=== PATIENT | female | born 1945 | race Caucasian/White ===

== ENCOUNTER 2022-11-12 21:33 | Inpatient (IN) | payer MEDICARE, OTHER ==
[~2022-11-12] VITALS: Ht 170.2 cm; Wt 90.7 kg
[2022-11-12] MEDS: MAGNESIUM SULFATE/D5W 100 ML IV SCH (00:22)
[2022-11-12] MEDS: IV NORMAL SALINE 250 ML BAG IV ONE (00:58)
[2022-11-12] MEDS ORDERED: VANCOMYCIN IV 1,000 MG in IV DEXTROSE 5% 250 ML IV ONE (21:45)
[2022-11-12] MEDS ORDERED: ACETAMINOPHEN 650 MG SUPP.RECT RC ONE ×2 (21:45→23:17)
[2022-11-12] MEDS ORDERED: CEFEPIME HCL 1 G in IV DEXTROSE 5% 50 ML IV ONE (21:45)
[2022-11-12 22:03] LABS: HEMATOCRIT 36.5 % (31.2-41.9); MEAN CORPUSCULAR HEMOGLOBIN 29.5 uug (24.7-32.8); MEAN CORPUSCULAR VOLUME 89.1 fL (75.5-95.3); PLATELET COUNT (AUTO) 185 K/uL (179-408)
[2022-11-12 22:24] LABS: CREATININE 0.9 mg/dL (0.6-1.3)
[2022-11-12 22:26] LABS: BILIRUBIN,TOTAL 0.4 mg/dL (0.2-1.0); MAGNESIUM 1.6 mg/dL (1.8-2.4); PHOSPHOROUS 4.1 mg/dL (2.5-4.9); TOTAL PROTEIN, SERUM 7.8 g/dL (6.4-8.2)
[2022-11-12] MEDS ORDERED: CEFEPIME HCL 1 G VIAL ONE (23:16)
[2022-11-12] MEDS ORDERED: VANCOMYCIN IV 200 ML ONE (23:52)
[2022-11-12] MEDS ORDERED: ASPI81TA31 PO (23:54)
[2022-11-12] MEDS ORDERED: ALBU2.5V38 NEB (23:54)
[2022-11-12] MEDS ORDERED: DOCU-141 PO (23:54)
[2022-11-12] MEDS ORDERED: GLUC1KIT IM (23:54)
[2022-11-12] MEDS ORDERED: DIPH25CA83 PO (23:54)
[2022-11-12] MEDS ORDERED: HYDR-3972 PO (23:54)
[2022-11-12] MEDS ORDERED: ASCO500T10 PO (23:54)
[2022-11-13] MEDS ORDERED: LEVO88TA5 PO (00:02)
[2022-11-13] MEDS ORDERED: INSU100V7 SQ (00:02)
[2022-11-13] MEDS ORDERED: LINA5TAB PO (00:02)
[2022-11-13] MEDS ORDERED: METO25TA6 PO (00:02)
[2022-11-13] MEDS ORDERED: MELA5TAB PO (00:02)
[2022-11-13] MEDS ORDERED: ENOX40DI SQ (00:02)
[2022-11-13] MEDS ORDERED: ONDA4TAB11 PO (00:02)
[2022-11-13] MEDS ORDERED: MULT-594 PO (00:02)
[2022-11-13] MEDS ORDERED: SIME80TA15 PO (00:02)
[2022-11-13] MEDS ORDERED: METF-440 PO (00:02)
[2022-11-13 00:08] LABS: ABG BASE EXCESS -5.6 mmol/L; ABG HCO3 20.4 mmol/L; ABG PCO2 41.7 mmHg (35.0-45.0); ABG PH 7.308 (7.350-7.450); ABG PO2 35.1 mmHg (75.0-100.0); ABG SITE RIGHT RADIAL; ABG TOTAL HEMOGLOBIN 13.6 G/dL (12.0-16.0); COHb 0.6 % (0.5-1.5); MetHb 0.3 % (0.0-1.5); O2Hb 60.3 % (94.0-97.0)
[2022-11-13] MEDS ORDERED: MAGNESIUM SULFATE/D5W 100 ML ONE (00:17)
[2022-11-13] MEDS: MAGNESIUM SULFATE/D5W 100 ML IV SCH (00:18)
[2022-11-13] MEDS ORDERED: SWABABLE VALVE TRANSFER SET EA MC ONE (00:25)
[2022-11-13] MEDS ORDERED: IOHEXOL 350 100 ML INFUS..BTL ONE (00:25)
[2022-11-13] MEDS ORDERED: IV NORMAL SALINE 250 ML IV ONE (00:25)
[2022-11-13 00:30] LABS: *BILIRUBIN,URIN NEGATIVE (NEGATIVE); *BLOOD, URINE 2+ (NEGATIVE); *COLOR,URINE YELLOW (YELLOW); *KETONES,URINE TRACE (NEGATIVE); *UROBILINOGEN,URINE 0.2 E.U./dl (NORMAL); LEUKOCYTE ESTERASE ,URINE 3+ (NEGATIVE); NITRITE, URINE NEGATIVE (NEGATIVE); PH,URINE 5.5 (5.0-8.0)
[2022-11-13 00:36] LABS: UGLUCOSE 2+ (NEGATIVE)
[2022-11-13] MEDS ORDERED: INSULIN REGULAR, HUMAN 300 UNIT/3 ML VIAL IV ONE (00:45)
[2022-11-13] MEDS ORDERED: IV NORMAL SALINE 500 ML BAG IV ONE (00:45)
[2022-11-13] MEDS: IV NORMAL SALINE 250 ML BAG IV ONE (00:58)
[2022-11-13 02:10] LABS: *CLARITY,URINE CLOUDY (CLEAR); RBC,URINE TNTC /HPF (0-3)
[2022-11-13 02:11] LABS: WBC,URINE TNTC /HPF (0-3)
[2022-11-13 02:15] LABS: BACTERIA,URINE MODERATE /HPF (NONE SEEN); SQUAMOUS EPITHELIAL CELL,UR NONE SEEN /HPF (NONE SEEN); YEAST,URINE MANY /HPF (NONE SEEN)
[2022-11-13] MEDS ORDERED: ONDANSETRON 4 MG/2 ML VIAL IV PRN (05:00)
[2022-11-13] MEDS ORDERED: DEXTROSE 50% 50 ML DISP.SYRIN IV PRN (05:00)
[2022-11-13] MEDS ORDERED: REMEDY ESSENTIAL ZINC PASTE 113 GM TP PRN (05:00)
[2022-11-13] MEDS ORDERED: ACETAMINOPHEN 325 MG TABLET PO PRN (05:00)
[2022-11-13] MEDS ORDERED: INSULIN REGULAR, HUMAN 300 UNITS/3 ML VIAL SQ PRN (05:00)
[2022-11-13] MEDS ORDERED: MAGNESIUM HYDROXIDE 30 ML LIQUID UDC PO PRN (05:00)
[2022-11-13] MEDS ORDERED: ONDANSETRON 4 MG/2 ML VIAL ONE (07:10)
[2022-11-13] MEDS ORDERED: CEFEPIME HCL 1 G VIAL ONE ×3 (07:42→22:17)
[2022-11-13] MEDS: CEFEPIME HCL 1 G in IV DEXTROSE 5% 50 ML IV SCH ×3 (07:49→22:53)
[2022-11-13] MEDS: BLOOD SUGAR DIAGNOSTIC 1 EACH STRIP VI SCH ×4 (07:53→21:00)
[2022-11-13] MEDS ORDERED: INSULIN REGULAR, HUMAN 300 UNIT/3 ML VIAL ONE (08:05)
[2022-11-13] MEDS: INSULIN REGULAR, HUMAN 300 UNIT/3 ML VIAL SQ PRN ×3 (08:18→16:56)
[2022-11-13 08:23] LABS: ABG BASE EXCESS -5.3 mmol/L; ABG HCO3 18.8 mmol/L; ABG PCO2 32.3 mmHg (35.0-45.0); ABG PH 7.382 (7.350-7.450); ABG PO2 386.6 mmHg (75.0-100.0); ABG SITE RIGHT RADIAL; ABG TOTAL HEMOGLOBIN 13.1 G/dL (12.0-16.0); COHb 0.5 % (0.5-1.5); MetHb 0.4 % (0.0-1.5); O2Hb 98.8 % (94.0-97.0); VENT MODE BIPAP
[2022-11-13 10:46] LABS: MEAN CORPUSCULAR HEMOGLOBIN 29.1 uug (24.7-32.8); MEAN CORPUSCULAR VOLUME 89.1 fL (75.5-95.3); PLATELET COUNT (AUTO) 166 K/uL (179-408)
[2022-11-13 11:04] LABS: BILIRUBIN,TOTAL 0.3 mg/dL (0.2-1.0); CREATININE 1.2 mg/dL (0.6-1.3); PHOSPHOROUS 4.2 mg/dL (2.5-4.9); POTASSIUM 4.5 mmol/L (3.5-5.1); TOTAL PROTEIN, SERUM 7.3 g/dL (6.4-8.2)
[2022-11-13] MEDS ORDERED: VANCOMYCIN IV 200 ML ONE (11:06)
[2022-11-13] MEDS: VANCOMYCIN IV 1,000 MG in IV DEXTROSE 5% 250 ML IV SCH ×2 (11:18→22:52)
[2022-11-13] MEDS: LINAGLIPTIN 5 MG TABLET PO SCH (12:25)
[2022-11-13 12:38] LABS: THYROID STIMULATING HORMONE 3.713 mIU/mL (0.358-3.740)
[2022-11-13 15:48] VITALS: BP 146/59
[2022-11-13] MEDS: DOCUSATE SODIUM 100 MG CAPSULE PO SCH (16:56)
[2022-11-13] MEDS: IV NS 1000 ML 1,000 ML IV PRN (18:47)
[2022-11-13 20:00] VITALS: BP 147/60
[2022-11-13] MEDS: MELATONIN 3 MG TABLET PO SCH (22:51)
[2022-11-13] MEDS: INSULIN GLARGINE,HUM 300 UNITS/3 ML CARTRIDGE SQ SCH (22:51)
[2022-11-13] MEDS: GUAIFENESIN/DEXTROMETHORPHAN 5 ML UDC PO PRN (23:54)
[2022-11-14] VITALS: BP 111/57
[2022-11-14] MEDS ORDERED: DEXTROSE 50% 50 ML DISP.SYRIN IV PRN (00:45)
[2022-11-14] MEDS ORDERED: INSULIN REGULAR, HUMAN 300 UNIT/3 ML VIAL SQ PRN (00:45)
[2022-11-14] MEDS ORDERED: CEFEPIME HCL 1 G VIAL ONE (01:24)
[2022-11-14 04:00] VITALS: BP 129/53
[2022-11-14] MEDS: CEFEPIME HCL 1 G in IV DEXTROSE 5% 50 ML IV SCH (06:05)
[2022-11-14] MEDS: LEVOTHYROXINE SODIUM 88 MCG TABLET PO SCH (06:05)
[2022-11-14] MEDS: GUAIFENESIN/DEXTROMETHORPHAN 5 ML UDC PO PRN ×2 (06:05→15:47)
[2022-11-14] MEDS: BLOOD SUGAR DIAGNOSTIC 1 EACH STRIP VI SCH ×4 (06:40→20:17)
[2022-11-14 07:12] LABS: HEMATOCRIT 30.3 % (31.2-41.9); MEAN CORPUSCULAR VOLUME 89.6 fL (75.5-95.3); PLATELET COUNT (AUTO) 159 K/uL (179-408)
[2022-11-14 07:28] LABS: BILIRUBIN,TOTAL 0.4 mg/dL (0.2-1.0); CREATININE 0.8 mg/dL (0.6-1.3); MAGNESIUM 2.1 mg/dL (1.8-2.4); PHOSPHOROUS 3.2 mg/dL (2.5-4.9); POTASSIUM 3.7 mmol/L (3.5-5.1); TOTAL PROTEIN, SERUM 6.6 g/dL (6.4-8.2)
[2022-11-14] MEDS ORDERED: BLOOD SUGAR DIAGNOSTIC 1 EACH STRIP VI SCH (07:30)
[2022-11-14] MEDS: INSULIN REGULAR, HUMAN 300 UNIT/3 ML VIAL SQ PRN ×3 (07:42→16:30)
[2022-11-14] MEDS: MULTIVITAMINS,THERAPEUTIC TABLET PO SCH (08:26)
[2022-11-14] MEDS: DOCUSATE SODIUM 100 MG CAPSULE PO SCH ×2 (08:26→16:44)
[2022-11-14] MEDS: ASPIRIN EC 81 MG TABLET.DR PO SCH (08:26)
[2022-11-14] MEDS: LINAGLIPTIN 5 MG TABLET PO SCH (08:26)
[2022-11-14] MEDS: VANCOMYCIN IV 1,000 MG in IV DEXTROSE 5% 250 ML IV SCH ×2 (10:45→23:08)
[2022-11-14 11:26] VITALS: BP 129/51
[2022-11-14] MEDS: CEFEPIME HCL 2 G in IV DEXTROSE 5% 100 ML IV SCH ×2 (13:39→21:07)
[2022-11-14] MEDS ORDERED: CEFEPIME HCL 2 G in IV DEXTROSE 5% 50 ML IV SCH (14:00)
[2022-11-14 15:53] VITALS: BP 125/48
[2022-11-14 20:00] VITALS: BP 134/35
[2022-11-14] MEDS: INSULIN GLARGINE,HUM 300 UNITS/3 ML CARTRIDGE SQ SCH (20:19)
[2022-11-14] MEDS: MELATONIN 3 MG TABLET PO SCH (20:20)
[2022-11-14] MEDS: MUPIROCIN 2% OINT 22 GM TUBE NS SCH (20:20)
[2022-11-15] VITALS: BP 156/44
[2022-11-15] MEDS: ALBUTEROL SULFATE 2.5 MG/3 ML NEBU NEB PRN (01:52)
[2022-11-15] MEDS: GUAIFENESIN/DEXTROMETHORPHAN 5 ML UDC PO PRN (03:10)
[2022-11-15 04:00] VITALS: BP 140/65
[2022-11-15] MEDS: CEFEPIME HCL 2 G in IV DEXTROSE 5% 100 ML IV SCH ×3 (05:08→22:37)
[2022-11-15] MEDS: LEVOTHYROXINE SODIUM 88 MCG TABLET PO SCH (06:05)
[2022-11-15] MEDS: BLOOD SUGAR DIAGNOSTIC 1 EACH STRIP VI SCH ×4 (06:34→21:45)
[2022-11-15 07:25] LABS: CREATININE 0.8 mg/dL (0.6-1.3); POTASSIUM 3.9 mmol/L (3.5-5.1)
[2022-11-15] MEDS: MULTIVITAMINS,THERAPEUTIC TABLET PO SCH (08:45)
[2022-11-15] MEDS: LINAGLIPTIN 5 MG TABLET PO SCH (08:45)
[2022-11-15] MEDS: DOCUSATE SODIUM 100 MG CAPSULE PO SCH ×2 (08:45→16:55)
[2022-11-15] MEDS: ASPIRIN EC 81 MG TABLET.DR PO SCH (08:46)
[2022-11-15] MEDS: MUPIROCIN 2% OINT 22 GM TUBE NS SCH ×2 (08:46→21:35)
[2022-11-15] MEDS: VANCOMYCIN IV 1,000 MG in IV DEXTROSE 5% 250 ML IV SCH ×2 (10:08→23:30)
[2022-11-15] MEDS: IV NS 1000 ML 1,000 ML IV PRN (10:19)
[2022-11-15] MEDS: NUTRISOURCE FIBER 4 GM PACKET PO SCH (10:46)
[2022-11-15] MEDS: INSULIN REGULAR, HUMAN 300 UNIT/3 ML VIAL SQ PRN ×2 (11:41→16:41)
[2022-11-15] MEDS ORDERED: FUROSEMIDE 20 MG/2 ML VIAL IV ONE (17:15)
[2022-11-15 20:31] VITALS: BP 132/51
[2022-11-15] MEDS: MELATONIN 3 MG TABLET PO SCH (21:35)
[2022-11-15] MEDS: INSULIN GLARGINE,HUM 300 UNITS/3 ML CARTRIDGE SQ SCH (21:47)
[2022-11-16 00:09] VITALS: BP 141/55
[2022-11-16 04:05] VITALS: BP 133/52
[2022-11-16] MEDS: ALBUTEROL SULFATE 2.5 MG/3 ML NEBU NEB PRN ×3 (04:40→20:44)
[2022-11-16] MEDS: CEFEPIME HCL 2 G in IV DEXTROSE 5% 100 ML IV SCH ×3 (06:03→21:43)
[2022-11-16] MEDS: LEVOTHYROXINE SODIUM 88 MCG TABLET PO SCH (06:04)
[2022-11-16 06:36] LABS: CREATININE 0.8 mg/dL (0.6-1.3); POTASSIUM 3.4 mmol/L (3.5-5.1)
[2022-11-16] MEDS: BLOOD SUGAR DIAGNOSTIC 1 EACH STRIP VI SCH ×4 (06:40→21:43)
[2022-11-16] MEDS: ASPIRIN EC 81 MG TABLET.DR PO SCH (08:36)
[2022-11-16] MEDS: DOCUSATE SODIUM 100 MG CAPSULE PO SCH ×2 (08:36→18:01)
[2022-11-16] MEDS: LINAGLIPTIN 5 MG TABLET PO SCH (08:36)
[2022-11-16] MEDS: MULTIVITAMINS,THERAPEUTIC TABLET PO SCH (08:37)
[2022-11-16] MEDS: NUTRISOURCE FIBER 4 GM PACKET PO SCH (08:37)
[2022-11-16] MEDS: MUPIROCIN 2% OINT 22 GM TUBE NS SCH ×2 (08:38→21:43)
[2022-11-16] MEDS: INSULIN REGULAR, HUMAN 300 UNIT/3 ML VIAL SQ PRN ×3 (08:39→18:07)
[2022-11-16] MEDS ORDERED: POTASSIUM CHLORIDE 20 MEQ TAB.PRT.SR PO ONE (10:15)
[2022-11-16 11:29] VITALS: BP 127/43
[2022-11-16] MEDS: VANCOMYCIN IV 1,000 MG in IV DEXTROSE 5% 250 ML IV SCH ×2 (12:19→22:20)
[2022-11-16] MEDS: GUAIFENESIN/DEXTROMETHORPHAN 5 ML UDC PO PRN (14:15)
[2022-11-16 15:30] VITALS: BP 137/58
[2022-11-16 20:00] VITALS: BP 153/61
[2022-11-16] MEDS: INSULIN GLARGINE,HUM 300 UNITS/3 ML CARTRIDGE SQ SCH (20:26)
[2022-11-16] MEDS ORDERED: FLUCONAZOLE 200 MG/100 ML PIGGYBACK ONE (21:37)
[2022-11-16] MEDS: MELATONIN 3 MG TABLET PO SCH (21:43)
[2022-11-16] MEDS ORDERED: FLUCONAZOLE 200 MG/NS 100ML IV 100 MG in PREMIXED 1 EACH IV SCH (22:00)
[2022-11-17] MEDS: GUAIFENESIN/DEXTROMETHORPHAN 5 ML UDC PO PRN ×2 (01:23→13:46)
[2022-11-17] MEDS: CEFEPIME HCL 2 G in IV DEXTROSE 5% 100 ML IV SCH ×2 (06:34→13:40)
[2022-11-17] MEDS: LEVOTHYROXINE SODIUM 88 MCG TABLET PO SCH (06:34)
[2022-11-17] MEDS: BLOOD SUGAR DIAGNOSTIC 1 EACH STRIP VI SCH ×3 (06:35→16:54)
[2022-11-17] MEDS: DOCUSATE SODIUM 100 MG CAPSULE PO SCH (09:20)
[2022-11-17] MEDS: MULTIVITAMINS,THERAPEUTIC TABLET PO SCH (09:20)
[2022-11-17] MEDS: ASPIRIN EC 81 MG TABLET.DR PO SCH (09:20)
[2022-11-17] MEDS: LINAGLIPTIN 5 MG TABLET PO SCH (09:20)
[2022-11-17] MEDS: NUTRISOURCE FIBER 4 GM PACKET PO SCH (09:22)
[2022-11-17] MEDS: MUPIROCIN 2% OINT 22 GM TUBE NS SCH (09:23)
[2022-11-17 10:48] LABS: CREATININE 0.8 mg/dL (0.6-1.3); POTASSIUM 4.2 mmol/L (3.5-5.1); VANCOMYCIN,TROUGH 25.1 ug/mL (12.0-20.0)
[2022-11-17 11:20] VITALS: BP 136/47
[2022-11-17] MEDS: INSULIN REGULAR, HUMAN 300 UNIT/3 ML VIAL SQ PRN (11:49)
[2022-11-17] MEDS ORDERED: DEXT50DI8 IV (13:32)
[2022-11-17] MEDS ORDERED: Wheat Dextrin PO (13:32)
[2022-11-17] MEDS ORDERED: MUPI22OI2 NS (13:32)
[2022-11-17] MEDS ORDERED: INSU100V28 SQ ×2 (13:32)
[2022-11-17] MEDS ORDERED: LEVO500T90 PO (13:32)
[2022-11-17] MEDS ORDERED: Insulin Glargine,Hum SQ (13:32)
[2022-11-17 16:00] VITALS: BP 132/59
[2022-11-17] MEDS: ALBUTEROL SULFATE 2.5 MG/3 ML NEBU NEB PRN (16:53)
[2022-11-17] MEDS ORDERED: FLUCONAZOLE 100 MG TABLET PO SCH (21:00)
[2022-11-18] MEDS ORDERED: VANCOMYCIN IV 1,250 MG in IV DEXTROSE 5% 250 ML IV SCH (06:00)
== END 2022-11-17 16:30 | DRG 871 ==
LOC: ER 21:33 → TRANSITION 11-13 01:30 → TELE3 11-13 14:34
PROVIDERS: ADMIT Internal Medicine; ATTEND Internal Medicine
PROC: 5A09357 Assistance with Respiratory Ventilation, Less than 24 Consecutive Hours, Continuous Positive Airway Pressure (ICD-10-PCS; principal; 2022-11-13)
PROC: 05HA33Z Insertion of Infusion Device into Left Brachial Vein, Percutaneous Approach (ICD-10-PCS; 2022-11-14)
DX: A41.9 Sepsis, unspecified organism (principal); E43 Unspecified severe protein-calorie malnutrition; G92.8 Other toxic encephalopathy; J96.01 Acute respiratory failure with hypoxia; I50.31 Acute diastolic (congestive) heart failure; N17.0 Acute kidney failure with tubular necrosis; N39.0 Urinary tract infection, site not specified; D68.59 Other primary thrombophilia; Z20.822 Contact with and (suspected) exposure to COVID-19; J40 Bronchitis, not specified as acute or chronic; I11.0 Hypertensive heart disease with heart failure; Z74.09 Other reduced mobility; E03.9 Hypothyroidism, unspecified; Z79.890 Hormone replacement therapy; I70.0 Atherosclerosis of aorta; I25.10 Atherosclerotic heart disease of native coronary artery without angina pectoris; E11.40 Type 2 diabetes mellitus with diabetic neuropathy, unspecified; K21.9 Gastro-esophageal reflux disease without esophagitis; Z79.84 Long term (current) use of oral hypoglycemic drugs; Z79.01 Long term (current) use of anticoagulants; Z79.4 Long term (current) use of insulin; E11.65 Type 2 diabetes mellitus with hyperglycemia; E66.8 Other obesity; Z68.31 Body mass index [BMI] 31.0-31.9, adult; Z88.7 Allergy status to serum and vaccine; Z22.322 Carrier or suspected carrier of Methicillin resistant Staphylococcus aureus; I25.2 Old myocardial infarction; Z87.440 Personal history of urinary (tract) infections
CPT/HCPCS: 36415; 36600; 70450; 71045; 71275; 82803; 83605; 83735; 84100; 84443; 84484; 85025; 87040; 93005; 93307; 94640; 94664; 94760; 99082-TC; A6213; C1758; G0378; J0692; J1450; J1815; J1940; J2405; J3370; J3475; J7040; J7050; Q9967